=== PATIENT | male | born 1985 | race Hispanic/Latino ===

== ENCOUNTER 2021-04-12 15:57 | Emergency (ER) | payer SELFPAY ==
[2021-04-12] MEDS ORDERED: Acetaminophen 500 MG TAB ONE (16:52)
[2021-04-12] MEDS ORDERED: Ketorolac Tromethamine 30 MG/ML VIAL ONE (17:02)
[2021-04-12] MEDS ORDERED: diphenhydrAMINE 50 MG/ML VIAL ONE (17:02)
[2021-04-12] MEDS ORDERED: Prochlorperazine 10 MG/2 ML VIAL ONE (17:03)
== END 2021-04-12 18:23 | disposition home or self-care (01) ==
LOC: ERS 15:57
DX: R51.9 Headache, unspecified (principal); Z87.891 Personal history of nicotine dependence
CPT/HCPCS: 96374; 96375; J0780; J1200; J1885